=== PATIENT | female | born 1980 | race Caucasian/White ===

== ENCOUNTER 2019-06-14 15:48 | Outpatient (CLI) | payer MEDICAID, SELFPAY ==
[2019-06-17 10:43] LABS: Hepatitis C Ab w Rflx HCV PCR Negative (NEGAT)
[2019-06-17 14:29] LABS: HIV-1/2 Ag & Ab Screen Negative (NEGAT)
== END 2019-06-14 16:08 ==
PROVIDERS: Visit Provider Nurse Practitioner Women's Health
DX: Z11.8 Encounter for screening for other infectious and parasitic diseases (principal); Z11.3 Encounter for screening for infections with a predominantly sexual mode of transmission; Z11.4 Encounter for screening for human immunodeficiency virus [HIV]
CPT/HCPCS: 36415; 86803; 87389

== ENCOUNTER 2022-07-19 20:44 | Emergency (ER) | payer MEDICAID, SELFPAY ==
[2022-07-19 21:05] VITALS: BP 115/91; PULSE 97; RESP 18; TEMP 36.7; O2SAT 100
--- NOTE | 2022-07-19 21:35 | W.ED.GENAD ---
Discharge Plan Disposition Patient Disposition: HOME Condition: Stable Discharge Details Clinical Impression: Rash Primary Care Provider: Jenni,Local ED Provider: Michelle March Home Meds and New Rx's Prescriptions: New prednisone 20 mg tablet 20 mg PO BID 5 Days Qty: 10 0RF cephalexin 500 mg capsule 500 mg PO Q6H 7 Days Qty: 28 0RF Discharge Instructions Instructions: Acute Rash (ED) Discharge Data Discharge Date/Time-TO BE ENTERED AT DEPARTURE: 07/19/22 21:47 Medical Decision Making cannot exclude secondary infection afebrile and non-toxic will supply keflex, prednisone return precautions discussed and pt expressed understanding Medical Records Medical records reviewed: Yes I reviewed the patient's medical records. Lab Data Lab results reviewed: Yes I reviewed the patient's lab results. HPI General Date/Time Provider Initiated Documentation: 07/19/22 20:45. HPI Narrative: This 41-year-old female presents with dysuria rash intermittently over the course of the past several years. States the worst which is why she presents. Describes the rash as itchy. Denies any drug use. Denies known exposure to scabies or bedbugs. Denies any additional complaints at this time. Related Data Home Medications Medication Instructions Recorded Confirmed cephalexin 500 mg capsule 500 mg PO Q6H 7 days #28 caps 07/19/22 prednisone 20 mg tablet 20 mg PO BID 5 days #10 tabs 07/19/22 Previous Rx's Medication Instructions Recorded cephalexin 500 mg capsule 500 mg PO Q6H 7 days #28 caps 07/19/22 prednisone 20 mg tablet 20 mg PO BID 5 days #10 tabs 07/19/22 Allergies Allergy/AdvReac Type Severity Reaction Status Date / Time loratadine [From [facility]avist ND] AdvReac super Unverified 07/19/22 21:09 angry as a child General Stated Complaint: RashLesion SILVIO: 4 Review of Systems All systems reviewed & are unremarkable except as noted in HPI and below PFSH All Active Problems (Updated 07/19/22 @ 21:39 by RICKY Alexander) Rash (Acute) Social History Smoking/Tobacco Use Status: Current every day Tobacco Type: cigarettes Smoking risk assessment performed?: Yes Alcohol Intake: current Alcohol Intake frequency: a few times a month Drug use: Never Do you feel safe at home: Yes Do you feel safe in your relationship?: Yes Exam Const General: cooperative, comfortable and no acute distress [facility] Head images: 1. excoriations noted Eyes Pupils: PERRL Resp Effort & Inspection: normal respiratory effort Auscultation: clear to auscultation bilaterally Cardio Rate: regular rate Rhythm: regular rhythm GI Abdomen image: 1. excoriations widespread 2. Neuro General: patient alert Course Vital Signs Vital signs: Vital Signs Temperature 36.7 C 07/19/22 21:05 Pulse 97 H 07/19/22 21:05 Respiratory Rate 18 07/19/22 21:05 Blood Pressure 115/91 H 07/19/22 21:05 Pulse Oximetry 100 07/19/22 21:05 Temperature 36.7 C 07/19/22 21:05 Temperature Source Tympanic 07/19/22 21:05 Pulse 97 H 07/19/22 21:05 Respiratory Rate 18 07/19/22 21:05 Respiratory Effort Non-Labored 07/19/22 21:10 Blood Pressure 115/91 H 07/19/22 21:05 Pulse Oximetry 100 07/19/22 21:05 Pain Level 7 07/19/22 21:05
[2022-07-19] MEDS: predniSONE 20 MG TAB 40 MG PO (21:46)
== END 2022-07-19 21:47 | disposition home or self-care (01) ==
PROVIDERS: Emergency Provider Physician Assistant
DX: R30.0 Dysuria (principal); S00.91XA Abrasion of unspecified part of head, initial encounter; S50.812A Abrasion of left forearm, initial encounter; S50.811A Abrasion of right forearm, initial encounter; F17.210 Nicotine dependence, cigarettes, uncomplicated; X58.XXXA Exposure to other specified factors, initial encounter
CPT/HCPCS: 99283; 99284; J7512